=== PATIENT | female | born 2000 | race Caucasian/White ===

== ENCOUNTER 2022-08-02 11:19 | Day surgery (SDC) | payer MEDICAID, SELFPAY ==
[2022-08-02] VITALS (10 sets, daily range): BP systolic 82–138; BP diastolic 37–65; PULSE 73–94; RESP 16; TEMP 36–36.4; O2SAT 92–99; BMI 41.3
[2022-08-02] MEDS: Lactated Ringers 1,000 ML 15 ML IV (12:03)
--- NOTE | 2022-08-02 12:20 | EKG12_ITS ---
Test Reason : PRE OP Blood Pressure : / mmHG Vent. Rate : 072 BPM Atrial Rate : 072 BPM P-R Int : 118 ms QRS Dur : 084 ms QT Int : 392 ms P-R-T Axes : 014 058 031 degrees QTc Int : 429 ms Normal sinus rhythm Normal ECG No previous ECGs available Confirmed by SHARONA OSBORN, SABINO ([id number]), film and video editor AURA GUNN ([id number]) on 08/06/2022 11:12:36 AM Referred By: Geoffrey Vann Confirmed By:SABINO TABOR MD
[2022-08-02 12:25] LABS: Bedside Glucose 247 mg/dL (74-106)
--- NOTE | 2022-08-02 12:30 | HP.PCM_ITS ---
History and Physical Date of Admission: 08/02/22 HISTORY AND PHYSICAL ? Gabby Landry 2000 ? REFERRING PHYSICIAN: Hieu Hanson MD ? CHIEF COMPLAINT: Consult (EGD and colonoscopy consult) ? HPI: The patient is a 21 year old female referred for endoscopy. Gabby notes a history of multiple abdominal complaints over the last couple of months including nausea, vomiting, abdominal bloating and lower abdominal pain. Aggravating factor include eating, no specific type of food. ? Patient denies blood in stools or black stools. Notes family history of colon cancer in grandparent, denies any first-degree relatives with colon cancer. Has tried miralax with some mild improvement. Notes history of tobacco use and vaping, states has since quit both with some improvement in the nausea. Notes moderate caffeine intake. Denies any marijuana use. ? Patient denies any chance of . ? Patient was evaluated by Dr. Hanson in gastroenterology, notes reviewed. She has also had several ED visits related to her abdominal complaints. Patient was started on gastroparesis diet, had gastric emptying test, using suppositories when miralax not working. It was recommended that she also have EGD and colonoscopy for further evaluation. Patient has not undergone prior endoscopy. ? Patient states she was was told that she could not be accommodated to have endoscopy procedure done in Gastro due to her BMI and history of type I diabetes. States was told to see general surgeon and schedule EGD/colonoscopy with MAC at hospital setting. ? Patient denies chest pain, shortness of breath or recent hospitalizations. Denies problems with sedation in the past. ? PAST MEDICAL HISTORY PAST MEDICAL HISTORY Diagnosis Date ? Liver tumor (benign) ? ? Type 1 diabetes (HCC) ? ? ? PAST SURGICAL HISTORY PAST SURGICAL HISTORY Procedure Laterality Date ? GASTRIC EMPTYING STUDY ? 06/09/2022 ? NONE ? CURRENT MEDICATIONS Current Outpatient Medications Medication Sig ? blood sugar diagnostic (CONTOUR NEXT TEST STRIPS) test strip before meals and at bedtime. Use as instructed ? atorvastatin (LIPITOR) 20 mg tablet Take 20 mg by mouth once daily. ? ONETOUCH ULTRA TEST test strip use 1 TEST STRIP BY IN VITRO ROUTE daily if needed ? DEXCOM G6 SENSOR karen USE DIRECTED to CONTINUOUSLY MONITOR BLOOD SUGAR, CHANGE EVERY 10 DAYS ? DEXCOM G6 TRANSMITTER karen ? ? busPIRone (BUSPAR) 5 mg tablet Take 5 mg by mouth twice daily. ? cetirizine (ZYRTEC) 10 mg tablet Take 10 mg by mouth once daily. ? cholecalciferol (VITAMIN D3) 1,000 unit tab tablet Take 1,000 Units by mouth once daily. ? LANTUS SOLOSTAR U-100 INSULIN 100 unit/mL (3 mL) inject up to 50 units UNDER THE SKIN at bedtime DOSE CHANGES FREQ... (REFER TO PRESCRIPTION NOTES). ? insulin lispro (HUMALOG KWIKPEN) 100 unit/mL use as directed for CARB COVERAGE AND HIGH BLOOD GLUCOSE CORRECTION ? lisinopril (ZESTRIL, PRINIVIL) 10 mg tablet Take 10 mg by mouth once daily. ? ondansetron orally disintegrating (ZOFRAN ODT) 4 mg disintegrating tablet take 1 tablet by mouth three times a day if needed for nausea and vomiting ? DROPLET PEN NEEDLE 31 gauge x 5/16 use 1 PEN NEEDLE four times a day before meals and at bedtime ? perphenazine 4 mg tablet Take 4 mg by mouth daily at bedtime. ? sertraline (ZOLOFT) 100 mg tablet Take 200 mg by mouth once daily. ? No current facility-administered medications for this visit. ? ? ALLERGIES: Patient has no known allergies. ? PERSONAL HISTORY: SOCIAL HISTORY Social History ? Tobacco Use ? Smoking status: Never ? Smokeless tobacco: Never Vaping Use ? Vaping Use: current everyday user Substance Use Topics ? Alcohol use: Never ? Drug use: Never ? ? FAMILY HISTORY: FAMILY HISTORY FAMILY HISTORY Problem Relation Age of Onset ? Colon Cancer Paternal Grandfather ? ? ? REVIEW OF SYMPTOMS: The review of systems data was entered by the nurse and reviewed by me ? Nursing Notes: Silke Em RN 07/02/2022 11:28 AM Signed REVIEW OF SYSTEMS: General: The patient NOTES fatigue, denies weight loss, denies weight gain, denies feeling hot, and denies feelings of cold. Eyes: The patient denies glaucoma, denies eye injury/surgery, wears glasses or contacts. Ear/Nose/Throat: The patient denies allergies, NOTES hayfever, denies ear infections, and denies bloody noses. Cardiovascular: The patient denies chest pain, denies heart disease, NOTES high blood pressure,denies cardiac stent, denies prior heart attack, denies irregular heart beat, NOTES high cholesterol, denies poor circulation, denies heart failure, other cardiac issues, denies claudication, denies cold feet, denies peripheral arterial stent. Respiratory: The patient denies tuberculosis, denies pneumonia, denies frequent cough, denies pulmonary embolism, denies shortness of breath, and denies coughing up blood. Gastrointestinal: The patient denies difficulty swallowing, denies acid reflux, denies ulcers, denies vomiting, denies jaundice/hepatitis, denies gallbladder problems, denies black or tarry stools, denies hemorrhoids, denies bleeding from rectum, denies diverticulitis, NOTES constipation, denies diarrhea, denies loss of stool control, and denies hernias. Kidney/Bladder: The patient denies kidney stones, denies urine infections, and denies bloody urine. Skin: The patient denies a history of skin cancer, denies bleeding/changing moles, and denies a history of skin rash. Neurologic: The patient denies a history of epilepsy/convulsions, denies headaches, denies head/spinal injuries, and denies stroke/TIA. Psychiatric: The patient NOTES psychiatric medications, NOTES depression, and denies voices, denies substance abuse. Endocrine: The patient denies thyroid disorders, NOTES diabetes, and denies hormonal problems. Hematologic: The patient denies a history of bruising, denies bleeding, and denies anemia, denies blood clots. Infections: The patient denies a history of measles and mumps, denies rheumatic fever, and denies sexually transmitted diseases. Musculoskeletal: The patient denies back pain/injury, denies back p roblems, denies sciatica, denies knee/foot trouble, denies arthritis, or denies gout. ? ? When was patient's last Mammogram screening? N/A ? Last Colonoscopy: None ? Silke Em RN I have confirmed and edited as necessary, the PFSH and ROS obtained by others. Nata Turpin PA-C ? PHYSICAL EXAMINATION: ? General: The patient is 21 year old female, well nourished, well hydrated in no acute distress. The patient is oriented to time, place, and person. ? VITALS: Blood pressure 123/76, pulse 100, temperature 36.7 ?C (98 ?F), height 160 cm (5' 3), weight 106.1 kg (233 lb 12.8 oz), SpO2 100 %. Body mass index is 41.42 kg/m?. ? HEENT: Normal cephalic, ataumatic, pupils are equally round, sclera are anicteric, mucous membranes are moist, oropharynx is clear. Neck has no masses, asymmetry or lymphadenopathy. ? Respiratory: Clear to auscultation and percussion. Normal respiratory excursion and pattern. ? Cardiac: Examination is regular rate and rhythm. Normal S1/S2 ? Abdominal exam: Soft, nontender, with no palpable masses. No hepatosplenomegaly. No palpable hernias. ? Extremities: no clubbing, cyanosis or edema. No adenopathy. ? LABORATORY VALUES: As Noted ? RADIOLOGIC STUDIES: As Noted ? ? Assessment IMPRESSION: change in bowel habits, nausea, abdominal bloating and pain ? PLAN: I have reviewed my findings with the surgeon. Will plan for upper and lower endoscopy. We discussed the risks and benefits of the planned endoscopy. I have informed the patient that complications can occur including failure to complete the endoscopy and perforation. The patient had the opportunity to ask questions concerning the planned endoscopy. My staff has also explained the procedure to the patient in understandable terms and has given the patient printed material concerning the procedure. The patient freely consents to surgery. ? The patient was offered a surgery/procedure at a [facility] facility. I have counseled the patient regarding the risk of exposure to and/or potential harm posed by the COVID-19 virus with having a surgery/procedure at this time versus the risk of? delaying the surgery/procedure. It is not possible to know either the risk of delaying the surgery or procedure or chance of getting an infection with perfect accuracy, but a joint decision was made between the patient and myself?to proceed at this time with endoscopy. ? ? I plan to use Golytely bowel preparation ? Patient instructed to contact PCP for instructions regarding diabetic medication, which may require adjustment during bowel preparation and/or day of procedure ? ? The patient has medical comorbidities for which we will plan for the procedure to be performed under Monitored Anesthetic Care. Patient requesting to have the procedure completed by one of our [facility] general surgeons at [facility] ? Patient will follow back up with Gastroenterology following her endoscopy procedures ? Patient verbalized understanding of all above and agreed with the plan. ? Diagnoses: (R19.4) Change in bowel habits (primary encounter diagnosis) (K59.09) Other constipation (R10.30) Lower abdominal pain (R11.0) Nausea ? Consultation requested by Dr. Hanson for an opinion regarding abdominal complaints and changes in bowel habits. My final recommendations will be communicated back to the requesting physician by way of shared Medical record or letter to requesting physician via US mail. ? Nata Turpin PA-C I have examined the patient and the H&P has been reviewed. There are no clinical changes since date of exam.
--- NOTE | 2022-08-02 12:30 | IMM_PTH ---
PATIENT: LISA CANDELARIA LOC: EN U#:[id number] AGE/SX: 21/F ROOM: RE08/02/[address]: Dr. Viraj Lobato MD : 2000 BED: DIS: 08/02/2022 SPEC #: [id number] RECD: 08/03/22 15:02 STATUS: TAYLER REAngie #: [id number] STEFANI: 08/02/22 12:[address]: Viraj Lobato DEPT: IMMUNOHISTOCHEMISTRY RECD BY: Christine Lewis ENTERED: 08/03/22 15:04 SP TYPE: IMMUNO OTHR DR: Dr. Geoffrey Vann DO Tissues: B - Stomach, NOS Procedures: H Pylori (initial) PHYSICIAN & INSTITUTION [place] [id number] SPECIMEN INFORMATION: Tissue Source: B ? Antrum biopsy Clinical Info: Change in bowel habits, nausea, abdominal bloating and pain Specimen Number: [id number] CPT code: 26955 METHODOLOGY: Deparaffinized sections of prefer/formalin-fixed tissue or PAP/DQ stained slides are incubated with monoclonal/polyclonal antibodies/oligonucleotide probes. Localization is made via biotin free immunoperoxidase method. Appropriate controls are performed and reacted as expected. Results on target cell population are indicated in the following table: RESULTS: ANTIBODY / CLONE RESULT Block B H Pylori (polyclonal) negative These tests were developed and their performance characteristics determined by [facility]. They may not have been cleared or approved by the U.S. Food and Drug Administration. The FDA has determined that such clearance or approval is not necessary. The above immunohistochemical/dualISH markers are ordered and reviewed by the Pathologist. INTERPRETATION: B. Antrum, biopsy: Negative for Helicobacter pylori organisms. SJ:alannah 08/04/2022
--- NOTE | 2022-08-02 12:30 | EGD_PTH ---
PATIENT: LISA CANDELARIA LOC: EN U#:[id number] AGE/SX: 21/F ROOM: RE08/02/[address]: Dr. Viraj Lobato MD : 2000 BED: DIS: 08/02/2022 SPEC #: [id number] RECD: 08/02/22 14:23 STATUS: TAYLER ARCENIO #: [id number] STEFANI: 08/02/22 12:[address]: Viraj Lobato DEPT: SURGICAL PATHOLOGY RECD BY: Marta Timmons ENTERED: 08/03/22 09:29 SP TYPE: EGD BIOPSY OTHR DR: Dr. Geoffrey Vann DO Tissues: A - Duodenum, NOS B - Gastric mucous membrane C - Esophagus, NOS D - COLON BIOPSY E - Rectum, NOS Procedures: Special Stain Group II Surgery Specimen Level IV Alcian Blue/PAS (control) HEADER OPERATION: Colonoscopy, EGD ([facility]) with biopsies PRE-OP DIAGNOSIS: Change in bowel habits, nausea, abdominal bloating and pain TISSUE SUBMITTED: A ? Duodenum biopsy, B ? Antrum biopsy for H. pylori and histology, C ? Distal esophagus biopsy, D ? Random colon biopsies, E ? Rectal biopsies MICROSCOPIC DIAGNOSIS A. Duodenum, biopsy: Fragments of duodenal mucosa, no pathologic diagnosis. B. Antrum, biopsy: Moderate chronic gastritis. See microscopic description and comment. C. Distal esophagus, biopsy: A fragment of gastroesophageal mucosa with mild chronic inflammation. Intestinal metaplasia (goblet cell metaplasia) not identified. See comment. D. Colon, random biopsy: Fragments of colonic mucosa, no pathologic diagnosis. E. Rectal biopsy: Fragments of colonic mucosa, no pathologic diagnosis. SJ:rg 08/04/2022 COMMENT B. The results of immunohistochemistry for Helicobacter pylori will be reported separately ([id number]). C. Alcian blue/PAS stain with matched control is used in the evaluation of the specimen. The specimen predominantly consists of squamous mucosa. MICROSCOPIC DESCRIPTION Slides are reviewed. B. The specimen shows fragments of gastric mucosa with chronic inflammatory cell infiltrates in the lamina propria consisting of lymphocytes and plasma cells, consistent with moderate chronic gastritis. GROSS DESCRIPTION A - Received in fixative is one container labeled with the patient's name and designated duodenum biopsy. The specimen consists of two irregular fragments of light bridges soft tissue that in aggregate measure 0.6 x 0.3 x 0.1 cm. The specimen is totally submitted in one cassette. B - Received in fixative is one container labeled with the patient's name and designated antrum biopsy. The specimen consists of two irregular fragments of light bridges soft tissue that in aggregate measure 0.4 x 0.3 x 0.1 cm. The specimen is totally submitted in one cassette. C - Received in fixative is one container labeled with the patient's name and designated distal esophagus biopsy. The specimen consists of one irregular fragment of light bridges soft tissue that measures 0.3 x 0.3 x 0.1 cm. The specimen is totally submitted in one cassette. D - Received in fixative is one container labeled with the patient's name and designated random colon biopsy. The specimen consists of multiple irregular fragments of light bridges soft tissue that in aggregate measure 2 x 0.5 x 0.1 cm. The specimen is totally submitted in one cassette. E - Received in fixative is one container labeled with the patient's name and designated rectal biopsy. The specimen consists of multiple irregular fragments of light bridges soft tissue that in aggregate measure 0.8 x 0.5 x 0.1 cm. The specimen is totally submitted in one cassette. / SJ:rg 08/03/2022 TC:3 CPT: 75110 x5, 45005
--- NOTE | 2022-08-02 13:04 | OP.EGD_ITS ---
Patient Name: Gabby Landry Procedure Date: 08/02/2022 12:26 PM Date of : 2000 Age: 21 Procedure: Upper GI endoscopy Indications: Nausea Providers: Viraj Lobato MD Medicines: See the Anesthesia note for documentation of the administered medications Patient Profile: This is a 21 year old female. Refer to note in patient chart for documentation of history and physical. Complications: No immediate complications. Estimated blood loss: Minimal. Procedure: Pre-Anesthesia Assessment: - Prior to the procedure, a History and Physical was performed, and patient medications and allergies were reviewed. The patient's tolerance of previous anesthesia was also reviewed. The risks and benefits of the procedure and the sedation options and risks were discussed with the patient. All questions were answered, and informed consent was obtained. Prior Anticoagulants: The patient has taken no previous anticoagulant or antiplatelet agents. ASA Grade Assessment: III - A patient with severe systemic disease. After reviewing the risks and benefits, the patient was deemed in satisfactory condition to undergo the procedure. After obtaining informed consent, the endoscope was passed under direct vision. Throughout the procedure, the patient's blood pressure, pulse, and oxygen saturations were monitored continuously. The Endoscope was introduced through the mouth, and advanced to the second part of duodenum. The upper GI endoscopy was accomplished without difficulty. The patient tolerated the procedure well. Scope In: 12:40:05 PM Scope Out: 12:43:38 PM Total Procedure Duration Time 0 hours 3 minutes 33 seconds Findings: The Z-line was regular and was found 36 cm from the incisors. Biopsies were taken with a cold forceps for histology. Localized minimal inflammation characterized by erythema was found in the prepyloric region of the stomach. Biopsies were taken with a cold forceps for Helicobacter pylori testing. The examined duodenum was normal. Biopsies were taken with a cold forceps for histology. Impression: - Z-line regular, 36 cm from the incisors. Biopsied. - Gastritis. Biopsied. - Normal examined duodenum. Biopsied. Recommendation: - Await pathology results. - Repeat upper endoscopy PRN for surveillance. - Return to physician medication assistant in 1 week. - Continue present medications. Procedure Code(s): --- Professional --- 77498, Esophagogastroduodenoscopy, flexible, transoral; with biopsy, single or multiple Diagnosis Code(s): --- Professional --- K29.70, Gastritis, unspecified, without bleeding R11.0, Nausea CPT copyright 2017 [employer]. All rights reserved. The codes documented in this report are preliminary and upon salesperson men's hats review may be revised to meet current compliance requirements. MD Viraj Figueroa MD 08/02/2022 1:03:56 PM This report has been signed electronically. Number of Addenda: 0 Note Initiated On: 08/02/2022 12:26 PM
--- NOTE | 2022-08-02 13:04 | OP.CCLET_ITS ---
08/02/2022 Geoffrey Vann Re : Upper GI endoscopy procedure for Gabby Landry Dear Soo This procedure was performed on Tuesday, August 02, 2022. My impressions and recommendations are as follows: Impressions : - Z-line regular, 36 cm from the incisors. Biopsied. - Gastritis. Biopsied. - Normal examined duodenum. Biopsied. Recommendations : - Await pathology results. - Repeat upper endoscopy PRN for surveillance. - Return to physician assistant women's tennis coach in 1 week. - Continue present medications. My findings are described in the full procedure note, which is enclosed. If I can be of further assistance, please feel free to contact me at Doctor phone number(s): , Work: . Sincerely, MD Viraj Figueroa MD 08/02/2022 1:03:56 PM This report has been signed electronically.
--- NOTE | 2022-08-02 13:08 | OP.COLON_ITS ---
Patient Name: Gabby Landry Procedure Date: 08/02/2022 12:44 PM Date of : 2000 Age: 21 Procedure: Colonoscopy Indications: Lower abdominal pain, Change in bowel habits, Constipation Providers: Viraj Lobato MD Medicines: See the Anesthesia note for documentation of the administered medications Patient Profile: This is a 21 year old female. Refer to note in patient chart for documentation of history and physical. Last Colonoscopy: none. The patient's first colonoscopy is today. Complications: No immediate complications. Estimated blood loss: Minimal. Procedure: Pre-Anesthesia Assessment: - Prior to the procedure, a History and Physical was performed, and patient medications and allergies were reviewed. The patient's tolerance of previous anesthesia was also reviewed. The risks and benefits of the procedure and the sedation options and risks were discussed with the patient. All questions were answered, and informed consent was obtained. Prior Anticoagulants: The patient has taken no previous anticoagulant or antiplatelet agents. ASA Grade Assessment: III - A patient with severe systemic disease. After reviewing the risks and benefits, the patient was deemed in satisfactory condition to undergo the procedure. - Prior to the procedure, a History and Physical was performed, and patient medications and allergies were reviewed. The patient's tolerance of previous anesthesia was also reviewed. The risks and benefits of the procedure and the sedation options and risks were discussed with the patient. All questions were answered, and informed consent was obtained. Prior Anticoagulants: The patient has taken no previous anticoagulant or antiplatelet agents. ASA Grade Assessment: III - A patient with severe systemic disease. After reviewing the risks and benefits, the patient was deemed in satisfactory condition to undergo the procedure. After I obtained informed consent, the scope was passed under direct vision. Throughout the procedure, the patient's blood pressure, pulse, and oxygen saturations were monitored continuously. The adult colonoscope was introduced through the anus and advanced to the cecum, identified by appendiceal orifice and ileocecal valve. The colonoscopy was performed without difficulty. The patient tolerated the procedure well. The quality of the bowel preparation was fair. Scope In: 12:46:33 PM Scope Withdrawal Time 0 hours 8 minutes 10 seconds Scope Out: 12:58:02 PM Total Procedure Duration Time 0 hours 11 minutes 29 seconds Findings: The perianal and digital rectal examinations were normal. The colon (entire examined portion) appeared normal. Biopsies for histology were taken with a cold forceps from the entire colon for evaluation of microscopic colitis. Localized mild mucosal changes characterized by granularity and mucus were found in the rectum. Biopsies were taken with a cold forceps for histology. The exam was otherwise without abnormality on direct and retroflexion views. Impression: - Preparation of the colon was fair. - The entire examined colon is normal. Biopsied. - Localized mild mucosal changes were found in the rectum secondary to proctitis. Biopsied. - The examination was otherwise normal on direct and retroflexion views. Recommendation: - Patient has a contact number available for emergencies. The signs and symptoms of potential delayed complications were discussed with the patient. Return to normal activities tomorrow. Written discharge instructions were provided to the patient. - Resume previous diet. - Continue present medications. - Await pathology results. - Repeat colonoscopy date to be determined after pending pathology results are reviewed for surveillance. - Return to physician library circulation assistant in 1 week. Procedure Code(s): --- Professional --- 18358, Colonoscopy, flexible; with biopsy, single or multiple Diagnosis Code(s): --- Professional --- K62.89, Other specified diseases of anus and rectum R10.30, Lower abdominal pain, unspecified R19.4, Change in bowel habit K59.00, Constipation, unspecified CPT copyright 2017 [employer]. All rights reserved. The codes documented in this report are preliminary and upon remote medical coder review may be revised to meet current compliance requirements. MD Viraj Figueroa MD 08/02/2022 1:07:35 PM This report has been signed electronically. Number of Addenda: 0 Note Initiated On: 08/02/2022 12:44 PM
--- NOTE | 2022-08-02 13:08 | OP.CCLET_ITS ---
08/02/2022 Geoffrey Vann Re : Colonoscopy procedure for Gabby Landry Dear Soo This procedure was performed on Tuesday, August 02, 2022. My impressions and recommendations are as follows: Impressions : - Preparation of the colon was fair. - The entire examined colon is normal. Biopsied. - Localized mild mucosal changes were found in the rectum secondary to proctitis. Biopsied. - The examination was otherwise normal on direct and retroflexion views. Recommendations : - Patient has a contact number available for emergencies. The signs and symptoms of potential delayed complications were discussed with the patient. Return to normal activities tomorrow. Written discharge instructions were provided to the patient. - Resume previous diet. - Continue present medications. - Await pathology results. - Repeat colonoscopy date to be determined after pending pathology results are reviewed for surveillance. - Return to physician multimedia assistant in 1 week. My findings are described in the full procedure note, which is enclosed. If I can be of further assistance, please feel free to contact me at Doctor phone number(s): , Work: . Sincerely, MD Viraj Figueroa MD 08/02/2022 1:07:35 PM This report has been signed electronically.
[2022-08-02 13:31] LABS: Bedside Glucose 246 mg/dL (74-106)
== END 2022-08-02 14:01 | disposition home or self-care (01) ==
LOC: EN 11:24 → AC 11:25
PROVIDERS: PCP Family Medicine; Referring Provider Family Medicine; Visit Provider Surgery
PROC: 0DJD8ZZ Inspection of Lower Intestinal Tract, Via Natural or Artificial Opening Endoscopic (ICD-10-PCS; CPT 45378; principal; 2022-08-02 12:25)
DX: K29.50 Unspecified chronic gastritis without bleeding (principal); E10.9 Type 1 diabetes mellitus without complications; Z79.4 Long term (current) use of insulin; K62.89 Other specified diseases of anus and rectum; K20.90 Esophagitis, unspecified without bleeding; E78.00 Pure hypercholesterolemia, unspecified; I10 Essential (primary) hypertension; F41.9 Anxiety disorder, unspecified; R19.4 Change in bowel habit; Z79.899 Other long term (current) drug therapy; Z87.891 Personal history of nicotine dependence; Z80.0 Family history of malignant neoplasm of digestive organs
CPT/HCPCS: 45380; 43239; 82962; 88305; 88313; 88342; 93005; J7120; J2405